=== PATIENT | female | born 1970 | race American Indian/Alaskan Native ===

== ENCOUNTER 2019-10-21 06:07 | Day surgery (SDC) | payer BC ==
--- NOTE | 2019-10-20 16:46 | History and Physical Report ---
History of Present Illness Date of examination: 10/19/19 Date of admission: 10/21/2019 Chief complaint: heavy vaginal bleeding, painful periods History of present illness: Visit Type: Pre-Op CC: sharp vaginal pain. History of Present Illness: Pt presents for pre-op visit; c/o sharp vaginal pains and changing pad every 2 hrs......................................................................Nii Stephens October 19, 2019 1:43 PM Pt has long h/o DUB and was noted to have endometrial mass on SIS.Embx showed polpyoid tissue. Pt desires removal of mass. She is here for pre op for hysteroscopy with myosure. Vital Signs: Patient Profile: 49 Years Old Female LMP: 09/25/2019 Height: 65 inches (165.10 cm) Weight: 227 pounds BMI: 37.77 BP sittin / 90 (left arm) Menstrual History: LMP (date): 09/25/2019 Current Method of Contraception: None Past History : 2 Term Births: 2 Para: 2 TOE FORMER STITCHDOWNS History Uterine Surgery (not C/S): negative Operations: Novasure ablation Tubal Ligation Essure--she denies this today 11/18/17 MB has vasetomy Hospitalizations: negative Anesthesia Complications: negative Abnormal PAP: negative Uterine Anomaly: negative ENEDINA Exposure: negative Infertility: negative Infection History HIV Risk Eval: no Personal hx. of genital herpes: yes Partner hx. of genital herpes: no Hx of STD: Trichomonas Other: HSV1 FALSECurrent Allergies (reviewed today): No known allergies Past Medical History: Reviewed history from 09/29/2018 and no changes required: Anxiety Sjorgens- diagnosed in 2017 Past Surgical History: Reviewed history from 11/18/2017 and no changes required: Novasure ablation Tubal Ligation Essure--she denies this today 11/18/17 MB has vasetomy Social History: Patient is Smoking History: Patient has never smoked. Risk Factors: Smoked Tobacco Use: Never smoker Smokeless Tobacco Use: Never Drug use: no HIV high-risk behavior: no Alcohol use: yes Type: occ Exercise: yes Seatbelt use: 100 % Review of Systems General Denies fever, chills, sweats, anorexia, fatigue, weakness, malaise, weight loss and sleep disorder. Denies nausea, vomiting, headache, swelling of legs, abdominal pain, vaginal discharge, vaginal bleeding and contractions. Complains of menorrhagia and painful periods. Denies vaginal discharge, incontinence, dysuria, hematuria, urinary frequency, amenorrhea, abnormal vaginal bleeding, pelvic pain, genital sores, decreased libido, painful sex, urinary urgency, hot flashes, vaginal dryness, vaginal itching and vaginal odor. CV Denies chest pains, palpitations, syncope, dyspnea on exertion, orthopnea, PND and peripheral edema. Resp Denies cough, dyspnea at rest, excessive sputum, hemoptysis, wheezing and pleurisy. GI Denies nausea, vomiting, diarrhea, constipation, change in bowel habits, abdominal pain, melena, hematochezia, jaundice, gas/bloating, indigestion/heartburn, dysphagia and odynophagia. Endo Denies cold intolerance, heat intolerance, polydipsia, polyphagia, polyuria and unusual weight change. Breast Denies left breast lump, right breast lump, nipple discharge, bloody discharge from nipple, breast pain, abnormal mammogram and breast enlargement. MS Denies back pain, joint pain, joint swelling, muscle cramps, muscle weakness, stiffness, arthritis, sciatica, restless legs, leg pain at night and leg pain with exertion. Derm Denies rash, itching, dryness and suspicious lesions. Neuro Denies paralysis, paresthesias, headache, seizures, tremors, vertigo, transient blindness, frequent falls, frequent headaches and difficulty walking. Psych Denies depression, anxiety, irritability and mood swings. Eyes Denies blurring, diplopia, irritation, discharge, vision loss, eye pain and photophobia. ENT Denies earache, ear discharge, tinnitus, decreased hearing, nasal congestion, nosebleeds, sore throat and hoarseness. Allergy Denies urticaria, allergic rash, hay fever and recurrent infections. Heme Denies abnormal bruising, bleeding and enlarged lymph nodes. [Labs In-House] Physical Exam Appearance: well developed, well nourished, no acute distress Other Exams Lungs: no rales, rhonchi, or wheezes Heart: S1, S2, no murmur, rub, or gallop Abdomen: soft, non-tender, no masses, bowel sounds normal Extremities: normal alignment, no joint enlargement, crepitus, masses or tenderness; normal tone and strength Genitourinary Exam Comments: deferred until EUA [Problems-[facility]] Medications Added to Medication List This Visit: 1) Lysteda 650 Mg Oral Tablet (Tranexamic acid) .... 1300 mg 3 times daily (3900 mg/day) for up to 5 days during monthly menstruation Past History Past Medical History: other (see hpi) Past Surgical History: other (see hpi) TOE FORMER STITCHDOWNS History: other (see hpi) Family/Genetic History: other (see hpi) Social history: no significant social history, Medications and Allergies Allergies Allergy/AdvReac Type Severity Reaction Status Date / Time No Known Allergies Allergy Unverified 10/19/19 16:35 Home Medications Medication Instructions Recorded Confirmed Last Taken Type Hydroxychloroquine [Plaquenil] 200 mg PO QDAY 10/19/19 10/19/19 Unknown History Active Meds: Active Medications Lactated Ringer's (Lactated Ringers) 1,000 mls @ 100 mls/hr IV DIRECT FUAD Midazolam HCl (Versed) 2 mg IV PREOP NR Stop: 10/21/19 16:00 Scopolamine (Transderm-Scop) 1 each TD PREOP NR Stop: 10/21/19 16:00 Review of Systems All systems: negative - Physical Exam Cardiovascular: Normal S1, Normal S2 Lungs: Positive: Clear to auscultation, Normal air movement Abdomen: Positive: normal appearance, soft, distention, tenderness Genitourinary (Female): Positive: other (deferred until EUA) Results All other labs normal. Assessment and Plan - Patient Problems (1) Dysmenorrhea Status: Acute (2) Menorrhagia Status: Acute (3) Endometrial mass Status: Acute Plan to address problem: -mass seen on SIS -To OR for hysteroscopy with myosure -consents signed and placed on the chart
[~2019-10-21 06:07] MED LIST: LACTATED RINGERS 1,000 ML IV SCH; MIDAZOLAM 2 MG/2 ML INJ IV NR; SCOPOLAMINE TRANSDERMAL PATCH 72 HR TD NR; ceFAZolin/Water 2 GM/20 ML 2 GM/20 ML SYRINGE IV NR
[2019-10-21] MEDS ORDERED: fentaNYL 100 MCG/2 ML INJ IV PRN (07:10)
--- NOTE | 2019-10-21 07:12 | Anesthesia Day of Surgery ---
Anesthesia Day of Surgery - Day of Surgery Patient Examined: Yes Patient H&P Reviewed: Yes Patient is NPO: Yes
--- NOTE | 2019-10-21 07:12 | Anesthesia Consultation ---
Anesthesia Consult and Med Hx Date of service: 10/21/19 - Airway Anesthetic Teeth Evaluation: Good ROM Head & Neck: Adequate Mental/Hyoid Distance: Adequate Mallampati Class: Class II Intubation Access Assessment: Probably Good - Pulmonary Exam CTA: Yes - Cardiac Exam Cardiac Exam: RRR - Pre-Operative Health Status ASA Pre-Surgery Classification: ASA2 Proposed Anesthetic Plan: General - Pulmonary Hx Smoking: No Hx Respiratory Symptoms: No Hx Sleep Apnea: Yes (compliant with CPAP) - Cardiovascular System Hx Hypertension: No Hx Heart Attack/AMI: No - Central Nervous System CVA: No - Gastrointestinal Hx Gastroesophageal Reflux Disease: Yes (mild) - Endocrine Hx Renal Disease: No Hx Liver Disease: No Hx Insulin Dependent Diabetes: No Hx Non-Insulin Dependent Diabetes: No Hx Thyroid Disease: No - Other Systems Hx Alcohol Use: Yes (Occas) Hx Obesity: Yes (BMI 37) - Additional Comments Anesthesia Medical History Comments: Hx Sjogren's syndrome. Denies associated complications.
[2019-10-21] MEDS ORDERED: LIDOCAINE MPF (2%) 20 MG/1 ML VIAL 5 ML ONE (07:22)
[2019-10-21] MEDS ORDERED: PROPOFOL 200 MG/20 ML VIAL IV ONE (07:22)
[2019-10-21] MEDS ORDERED: MIDAZOLAM 2 MG/2 ML INJ ONE (07:22)
[2019-10-21] MEDS ORDERED: KETOROLAC 30 MG/1 ML INJ ONE (08:36)
[2019-10-21] MEDS ORDERED: ONDANSETRON 4 MG/2 ML INJ ONE (08:36)
[2019-10-21] MEDS ORDERED: dexAMETHasone 20 MG/5 ML VIAL ONE (08:36)
--- NOTE | 2019-10-21 09:06 | Operative Report ---
Operative Report Operative Report: Date of procedure: 10/21/2019 Pre-operative diagnosis: Menorrhagia Dysmenorrhea Menorrhagia Endometrial mass Post-operative diagnosis: Same Procedure name(s): Hysteroscopy Myosure Surgeon: Dr. Oden Nutrition Helper: Certified surgical scrub plastic surgery assistant Anesthesia: Gen. Anesthesia( LMA) EBL: 50 mL Urine output: 50 mL of clear urine out at the beginning of the procedure via straight catheterization Fluid deficit: 800 mL Fluids: 1 L Findings: Thickened tissue within the endometrium was noted. Patient initially was having moderate bleeding prior to the onset of procedure. At the end of the procedure minimal bleeding was noted. Approximately 1-2 cm endometrial mass was noted and removed in its entirety via pressure. Indications: Patient presents with prolonged vaginal bleeding and dysmenorrhea. Patient was noted to have endometrial mass on saline infused sonogram. Endometrial biopsy obtained was noted to be positive for polypoid tissue but otherwise normal. Patient desired removal of mass. All risks benefits and alternatives were discussed with the patient. Consents were signed and placed on the chart. Procedure: Patient was taken to the operating room where she was placed under general anesthesia. She was placed in dorsal lithotomy position with legs in Perez stirrups. She was then prepped and draped in sterile fashion. Bladder was emptied via straight catheterization at this time. The anterior lip of the cervix was grasped with a tenaculum and the uterus was sounded to approximately 10 cm. As at this point that the cervix was dilated to allow the passage of a Myosure hysteroscope. Using the Venancio device the endometrial mass as well as extra endometrial tissue were removed at this time without difficulty. Minimal bleeding was noted. Uterine cavity was noted to have a smooth appearance. Hemostasis was noted to be excellent. Patient was taken to the recovery room awake and in stable condition. Patient was given Ancef prior to the onset of the procedure. All laps and needle counts were correct. Patient tolerated the procedure well.
--- NOTE | 2019-10-21 09:10 | Short Stay Summary ---
Short Stay Documentation Date of service: 10/21/19 - History H&P: dictated Past Medical History: other (see H&P) Social history: no significant social history, - Allergies and Medications Current Medications: Allergies No Known Allergies Allergy (Unverified 10/19/19 16:35) Home Medications Medication Instructions Recorded Confirmed Last Taken Type Hydroxychloroquine [Plaquenil] 200 mg PO QDAY 10/19/19 10/21/19 10/19/19 History Active Medications Fentanyl (Sublimaze) 50 mcg IV Q5MIN PRN PRN Reason: Pain , Severe (7-10) Stop: 10/21/19 23:00 Lactated Ringer's (Lactated Ringers) 1,000 mls @ 100 mls/hr IV DIRECT FUAD Last Admin: 10/21/19 07:40 Dose: 100 mls/hr Documented by: Cefazolin Sodium (Ancef/Sterile Water 2 Gm/20 Ml) 2 gm in 20 mls @ 80 mls/hr IV PREOP NR; Protocol Stop: 10/21/19 23:59 Midazolam HCl (Versed) 2 mg IV PREOP NR Stop: 10/21/19 16:00 Last Admin: 10/21/19 07:42 Dose: 2 mg Documented by: Scopolamine (Transderm-Scop) 1 each TD PREOP NR Stop: 10/21/19 16:00 Last Admin: 10/21/19 07:35 Dose: 1 each Documented by: - Brief post op/procedure progress note Date of procedure: 10/21/19 Pre-op diagnosis: memometrorrhagia 2)endometrial mass Post-op diagnosis: same Procedure: hysteroscopy myosure removal of endometrial mass Anesthesia: MAC Findings: thickened endometrium moderate bleeding prior to procedure minimal at end of procedure endometrial mass Surgeon: RICHARD ARAUJO Estimated blood loss: 50-100ml Pathology: list (endometrial tissue and mass) Specimen disposition: to lab Condition: stable - Hospital course Hospital course: Pt admitted for above stated procedure which was not complicated. Pt will be d/c home once the criteria had been met for discharge for PACU. - Disposition Condition at discharge: Good Disposition: DC-01 TO HOME OR SELFCARE - Discharge Diagnoses (1) Dysmenorrhea Status: Acute (2) Menorrhagia Status: Acute (3) Endometrial mass Status: Acute Short Stay Discharge Plan Activity: no restrictions Diet: regular Follow up with: BRIJESH BROWNING MD [Primary Care Provider] - 7 Days
[2019-10-21 11:12] VITALS: BP 151/81
--- NOTE | 2019-10-21 16:02 | Post Anesthesia Evaluation ---
- Post Anesthesia Evaluation Patient Participated: Yes Airway Patent: Yes Stable Respiratory Function: Yes Nausea/Vomiting: No Temp > 96.8F: Yes Pain Manageable: Yes Adequeate Hydration: Yes Anesthesia Complications: No Block Receding Appropriately: Not Applicable Patient on Ventilator: No
== END 2019-10-21 06:08 | disposition home or self-care (01) ==
LOC: OR 06:07
PROVIDERS: ATTEND Obstetrics & Gynecology
DX: N92.0 Excessive and frequent menstruation with regular cycle (principal); N94.6 Dysmenorrhea, unspecified; N85.8 Other specified noninflammatory disorders of uterus; N94.89 Other specified conditions associated with female genital organs and menstrual cycle; G47.30 Sleep apnea, unspecified; K21.9 Gastro-esophageal reflux disease without esophagitis; E66.9 Obesity, unspecified; M19.90 Unspecified osteoarthritis, unspecified site; Z72.89 Other problems related to lifestyle; Z98.890 Other specified postprocedural states; Z79.899 Other long term (current) drug therapy; Z68.37 Body mass index [BMI] 37.0-37.9, adult
CPT/HCPCS: 58558; 81025; 82803; 88305; C1782; J0690; J1100; J1885; J2250; J2405; J2704; J3010; J7120

== ENCOUNTER 2020-09-27 06:10 | Observation (INO) | payer BC ==
--- NOTE | 2020-09-25 20:47 | History and Physical Report ---
History of Present Illness Date of examination: 09/21/20 Date of admission: 09/27/2020 Chief complaint: heavy vaginal bleeding History of present illness: CC: pre op. History of Present Illness: pt presents for pre op visit: LAVH/ bilateral salpingectomy: Declines IUD removal......................................................................Hua Stephens September 21, 2020 10:50 AM Mask, Patient denies fever, cough, shortness of breath and exposure to COVID-19. Pt with long h/o menomet for the past year that has gotten progressively worse. She is s/p OCPs, Mirena and h/o ablation in the past all of which have not shown improvment in her symptoms. She desires removal of uterus. She was counseled regarding removal of tubes.All risk/benefits/alternatives were d/w pt and questions were addressed and answered. She desries removal also. Pt lexie has the mirena in place and will have removal at time of the procedue also. Consets signed and given to pt to bring with her at time of the procedure. Vital Signs: Patient Profile: 50 Years Old Female Height: 65 inches (165.10 cm) Weight: 231 pounds BMI: 38.44 Temp: 98.0 degrees F BP sittin / 84 (left arm) Current Method of Contraception: IUD Date of Last Mammogram: 07/29/2020 Past History : 2 Term Births: 2 Living Children: 2 Para: 2 MANAGER OF HOSPITAL History Uterine Surgery (not C/S): negative Operations: Novasure ablation Hospitalizations: negative Anesthesia Complications: negative Abnormal PAP: negative Uterine Anomaly: negative ENEDINA Exposure: negative Infertility: negative Infection History HIV Risk Eval: no Personal hx. of genital herpes: yes Partner hx. of genital herpes: no Hx of STD: Trichomonas Other: HSV1 Active Medications (reviewed today): HYDROXYCHLOROQUINE () ESTRADIOL 1 MG ORAL TABLET (ESTRADIOL) 1 po qd IBUPROFEN 800 MG ORAL TABLET (IBUPROFEN) 1 po q6 hr prn pain SINGULAR () MELOXICAM 15 MG ORAL TABLET (MELOXICAM) one po QD prn pain HCTZ () ATORVASTATIN CALCIUM POWDER (ATORVASTATIN CALCIUM) DAILY COMBO MULTI VITAMINS ORAL TABLET (MULTIPLE VITAMINS-MINERALS) Current Allergies (reviewed today): No known allergies Past Medical History: Reviewed history from 09/29/2018 and no changes required: Anxiety Sjorgens- diagnosed in 2017 Past Surgical History: Novasure ablation Family History Summary: Reviewed history Last on 12/28/2016 and no changes required:09/25/2020 General Comments - FH: Family History of CVA or Stroke Family History of Diabetes Family History of Hypertension Social History: Reviewed history from 10/19/2019 and no changes required: Patient is Smoking History: Patient has never smoked. Risk Factors: Smoked Tobacco Use: Never smoker Smokeless Tobacco Use: Never Drug use: no HIV high-risk behavior: no Alcohol use: yes Exercise: yes Seatbelt use: 100 % Mammogram History: Date of Last Mammogram: 07/29/2020 Review of Systems See HPI [Labs In-House] Physical Exam Appearance: well developed, well nourished, no acute distress Other Exams Lungs: no rales, rhonchi, or wheezes Heart: S1, S2, no murmur, rub, or gallop Abdomen: soft, non-tender, no masses, bowel sounds normal Skin: no ulcers, xanthomas Extremities: normal alignment, no joint enlargement, crepitus, masses or tenderness; normal tone and strength Genitourinary Exam Comments: deferred until EUA [Problems-[facility]] Medications Added to Medication List This Visit: 1) Hydroxychloroquine Past History Past Medical History: other (see hpi) Past Surgical History: other (see hpi) MANAGER OF HOSPITAL History: other (see hpi) Family/Genetic History: other (see hpi) Social history: other (see hpi) - Obstetrical History : 2 Para: 2 Hx # Term Pregnancies: 2 Number of Living Children: 2 Medications and Allergies Allergies Allergy/AdvReac Type Severity Reaction Status Date / Time shellfish derived Allergy Rash Verified 09/19/20 12:50 Home Medications Medication Instructions Recorded Confirmed Last Taken Type Hydroxychloroquine [Plaquenil] 200 mg PO QDAY 10/19/19 09/19/20 10/19/19 History AtorvaSTATin [Lipitor] 40 mg PO QHS 09/19/20 09/19/20 Unknown History Ibuprofen [Motrin 800 MG tab] 800 mg PO Q8H PRN 09/19/20 09/19/20 Unknown History Review of Systems All systems: negative - Vital Signs Vital signs: Vital Signs Temp Pulse Resp BP Pulse Ox 98.4 F 72 20 174/80 100 09/21/20 11:55 09/21/20 11:55 09/21/20 11:55 09/21/20 11:55 09/21/20 11:55 Temp Pulse Resp BP Pulse Ox 98.4 F 72 20 174/80 100 09/21/20 11:55 09/21/20 11:55 09/21/20 11:55 09/21/20 11:55 09/21/20 11:55 - Physical Exam Cardiovascular: Normal S1, Normal S2 Lungs: Positive: Clear to auscultation, Normal air movement Abdomen: Positive: normal appearance, soft. Negative: distention, tenderness, guarding Genitourinary (Female): Positive: other (deferred until eua) Results All other labs normal. Assessment and Plan - Patient Problems (1) Dysmenorrhea Status: Acute (2) Menorrhagia Status: Acute Plan to address problem: -admit for LAVH with BS and removal of mirena IUD -consent signed and placed on the chart
[~2020-09-27 06:10] MED LIST changes: +ACETAMINOPHEN 500 MG TAB PO SCH; +GABAPENTIN 300 MG CAP PO NR; -LACTATED RINGERS 1,000 ML IV SCH
[2020-09-27] MEDS ORDERED: BACTERIOSTATIC SODIUM CHLORIDE 0.9% 30 ML VIAL INFILTRATI ONE (06:27)
[2020-09-27] MEDS ORDERED: BUPIVACAINE/PF (0.5%) 5 MG/1 ML 30 ML VIAL INFILTRATI ONE ×2 (06:48→09:02)
[2020-09-27] MEDS ORDERED: SODIUM CHLORIDE 0.9% 1000 ML 1,000 ML ONE (06:48)
[2020-09-27] MEDS ORDERED: SODIUM CHLORIDE 0.9% 100 ML ONE (06:49)
[2020-09-27] MEDS ORDERED: VASOPRESSIN 20 UNIT/1 ML INJ ONE (06:49)
[2020-09-27] MEDS: LACTATED RINGERS 1,000 ML IV SCH ×2 (06:52→16:28)
[2020-09-27] MEDS ORDERED: METHYLENE BLUE 50 MG/10 ML AMP ONE (06:56)
[2020-09-27] MEDS ORDERED: ONDANSETRON 4 MG/2 ML INJ IV PRN (07:16)
[2020-09-27] MEDS ORDERED: HYDROmorphone 1 MG/1 ML INJ IV PRN (07:16)
[2020-09-27] MEDS ORDERED: ROCURONIUM 50 MG/5 ML INJ IV ONE (07:27)
[2020-09-27] MEDS ORDERED: LIDOCAINE MPF (2%) 20 MG/1 ML VIAL 5 ML ONE (07:27)
[2020-09-27] MEDS ORDERED: ONDANSETRON 4 MG/2 ML INJ ONE (07:27)
[2020-09-27] MEDS ORDERED: propofoL 200 MG/20 ML VIAL IV ONE (07:27)
[2020-09-27] MEDS ORDERED: HYDROmorphone 1 MG/1 ML INJ ONE (07:27)
[2020-09-27] MEDS ORDERED: dexAMETHasone 20 MG/5 ML VIAL ONE (07:27)
[2020-09-27 07:49] LABS: Basophils # (Auto) 0.1 K/mm3 (0.0-0.1); Basophils % (Auto) 1.1 % (0.0-1.8); Eosinophils # (Auto) 0.2 K/mm3 (0.0-0.4); Eosinophils % (Auto) 3.1 % (0.0-4.3); Hematocrit 41.8 % (30.3-42.9); Hemoglobin 13.9 gm/dl (10.1-14.3); Lymphocytes # (Auto) 2.2 K/mm3 (1.2-5.4); Lymphocytes % (Auto) 42.3 % (13.4-35.0); Mean Corpuscular HGB Conc 33 % (30-34); Mean Corpuscular Volume 92 fl (79-97); Monocytes # (Auto) 0.4 K/mm3 (0.0-0.8); Monocytes % (Auto) 7.6 % (0.0-7.3); Platelet Count 205 K/mm3 (140-440); Red Blood Count 4.54 M/mm3 (3.65-5.03); Red Cell Distribution Width 13.4 % (13.2-15.2)
--- NOTE | 2020-09-27 08:52 | Anesthesia Day of Surgery ---
Anesthesia Day of Surgery - Day of Surgery Patient Examined: Yes Patient H&P Reviewed: Yes Patient is NPO: Yes
--- NOTE | 2020-09-27 08:52 | Anesthesia Consultation ---
Anesthesia Consult and Med Hx Date of service: 09/27/20 - Airway Anesthetic Teeth Evaluation: Good ROM Head & Neck: Adequate Mental/Hyoid Distance: Adequate Mallampati Class: Class III Intubation Access Assessment: Possibly Difficult - Pulmonary Exam CTA: Yes - Cardiac Exam Cardiac Exam: RRR - Pre-Operative Health Status ASA Pre-Surgery Classification: ASA2 Proposed Anesthetic Plan: General Nerve Block: post-op TAP if procedure converts to open - Pulmonary Hx Smoking: No Hx Respiratory Symptoms: No Hx Sleep Apnea: Yes (compliant with CPAP) - Cardiovascular System Hx Hypertension: No - Central Nervous System CVA: No - Gastrointestinal Hx Gastroesophageal Reflux Disease: Yes - Endocrine Hx Renal Disease: No Hx Insulin Dependent Diabetes: No Hx Non-Insulin Dependent Diabetes: No Hx Thyroid Disease: No - Other Systems Hx Cancer: No Hx Obesity: Yes (BMI 37)
[2020-09-27] MEDS ORDERED: SODIUM CHLORIDE 0.9% IRR 1,500 ML BOTTLE IR ONE (09:02)
[2020-09-27] MEDS ORDERED: VASOPRESSIN 20 UNIT/1 ML INJ IV ONE (09:06)
[2020-09-27] MEDS ORDERED: SODIUM CHLORIDE 0.9% IRR 1,000 ML BOTTLE IR ONE (09:06)
[2020-09-27] MEDS ORDERED: SODIUM CHLORIDE 0.9% 100 ML IVPB IV ONE (09:15)
[2020-09-27] MEDS ORDERED: LACTATED RINGERS 1,000 ML ONE ×2 (12:14)
[2020-09-27] MEDS ORDERED: NEOSTIGMINE 10MG/10 ML INJ MDV ONE (12:23)
[2020-09-27] MEDS ORDERED: GLYCOPYRROLATE 0.4 MG/2 ML INJ ONE (12:23)
--- NOTE | 2020-09-27 12:42 | Operative Report ---
Operative Report Operative Report: Date of procedure: 09/27/2020 Pre-operative diagnosis: Menorrhagia Dysmenorrhea Failed medical therapy Uterine fibroid Post-operative diagnosis: Same Procedure name(s): Laparoscopic assisted vaginal hysterectomy Bilateral salpingectomy Surgeon: Davida Oden MD Section Hand Helper: Dr. Murphy Anesthesia: General endotracheal anesthesia EBL: 900 mL Urine output: 400 mL of clear urine out at the end of the procedure Fluids: 2300 mL Findings: Normal ovaries bilaterally Globular uterus with multiple fibroids noted Normal tubes bilaterally Adhesions of the bowel to distal left adnexa Indications: Patient presents for laparoscopic-assisted vaginal hysterectomy with bilateral salpingectomy. All risks benefits and alternatives were discussed with the patient. Consents were signed and placed on the chart. Procedure: Patient was taken to the operating room where she was placed under general endotracheal anesthesia. She was then prepped and draped in sterile fashion. It was at this point that the large [employer] care uterine manipulator was placed inside of the uterus after the uterus was sounded to approximately 10 cm. Jacob catheter was also placed at this time. Attention was then turned to the umbilicus in which a supraumbilical incision was made. Under direct visualization the 5 mm trocar was placed inside the peritoneum the peritoneum was then insufflated. As at this point that the laparoscopic portion of the procedure was performed. 1 lateral 5 mm port and one medical 8mm trocor were also placed under direct visualization. Using the tripolar instrument the upper pedicles were cauterized and transected to the including round ligament with excellent hemostasis noted bilaterally. Attention was then turned vaginally. A weighted speculum was placed into the vagina and the cervix was grasped with a single-tooth tenaculum 2. The cervix was then injected circumferentially with Pitressin. The cervix was then circumferentially incised with the scalpel and the bladder dissected off of the pubovesical cervical fascia anteriorly with a sponge stick and Metzenbaum scissors. The same procedure was performed posteriorly and the posterior cul-de-sac was entered into sharply without difficulty. At this point a Maria E Clamp was placed over the uterosacral ligaments on either side. These were then transected and suture ligated with 0 Vicryl. Hemostasis was assured. The cardinal ligaments were then clamped on both sides transected and suture ligated in similar fashion. The uterine arteries were then serially clamped with Maria E clamps transected and suture ligated on both sides. Excellent hemostasis was visualized. After it was clear that the uterus had been completely from all pedicles the uterus was removed vaginally intact with cervix intact. The vaginal cuff angles were closed with figure of 8 stitches of 0 Vicryl on both sides. The peritoneum was incorporated in the stitching of the vaginal cuff. A series of interrupted figure of 8 sutures using 0 Vicryl were used to close the entire vaginal cuff. Excellent hemostasis was noted. The vagina was then irrigated copiously. Attention was then turned laparoscopically at which time. Again all pedicles were noted to be hemostatic. The ureters were identified bila terally with peristalsis noted bilaterally. All instruments were then removed from the abdomen and the vagina. All gas was released from the abdomen. The abdominal incisions were closed using 4-0 Monocryl. Patient tolerated the procedure well sponge lap and needle counts were all correct 3 the patient was taken to the recovery room awake and in stable condition.
[2020-09-27] MEDS ORDERED: ACETAMINOPHEN 325 MG TAB PO PRN (13:00)
[2020-09-27] MEDS ORDERED: MORPHINE 4 MG/1 ML INJ IV PRN (13:00)
[2020-09-27] MEDS ORDERED: HYDROcodone/ACETAMINOPHEN 5-325 MG TAB PO PRN (13:00)
--- NOTE | 2020-09-27 14:48 | Post Anesthesia Evaluation ---
- Post Anesthesia Evaluation Patient Participated: Yes Airway Patent: Yes Stable Respiratory Function: Yes Nausea/Vomiting: No Temp > 96.8F: Yes Pain Manageable: Yes Adequeate Hydration: Yes Anesthesia Complications: No
[2020-09-27] MEDS: ceFAZolin/NS 1 GM/50 ML 1 GM/50 ML BAG IV SCH ×2 (16:29→23:50)
[2020-09-27] MEDS: KETOROLAC 30 MG/1 ML INJ IV PRN (22:42)
[2020-09-28 07:25] LABS: Hematocrit 30.6 % (30.3-42.9); Hemoglobin 10.4 gm/dl (10.1-14.3)
[2020-09-28] MEDS ORDERED: IBUPROFEN 800 MG TAB PO PRN (08:00)
[2020-09-28] MEDS: KETOROLAC 30 MG/1 ML INJ IV PRN (10:26)
--- NOTE | 2020-09-28 12:22 | Progress Note ---
Assessment and Plan - Patient Problems (1) Dysmenorrhea Current Visit: No Status: Acute (2) Menorrhagia Current Visit: No Status: Acute (3) S/P laparoscopic assisted vaginal hysterectomy (LAVH) Current Visit: Yes Status: Acute Plan to address problem: -doing well -d/c home today-f/u in office next week (4) Status post bilateral salpingectomy Current Visit: Yes Status: Acute Subjective - Subjective Date of service: 09/28/20 Principal diagnosis: POD#1 s/p LAVH, BSO, WITH IUD REMOVAL Interval history: Pt doing well today. Pain is well controlled at this time and she is tolerating a regular diet. She desires d/c home today. Patient reports: appetite normal, voiding normally, pain well controlled, ambulating normally, no dizzy ambulation Objective - Vital Signs Latest vital signs: Vital Signs Temp Pulse Pulse Resp Resp BP BP 09/28/20 10:26 20 09/28/20 08:40 97.9 F 89 20 117/79 09/28/20 08:05 20 09/28/20 05:01 99.0 F 85 20 114/62 09/28/20 00:20 99.8 F H 60 18 111/60 09/27/20 23:12 18 09/27/20 22:42 18 09/27/20 22:00 18 09/27/20 21:00 75 18 09/27/20 19:41 97.4 F L 86 18 131/77 09/27/20 15:40 98.0 F 65 16 119/65 09/27/20 14:00 77 20 118/62 09/27/20 13:45 77 20 119/64 09/27/20 13:30 97.2 F L 79 20 122/63 09/27/20 13:15 68 18 123/68 09/27/20 13:05 67 20 123/72 09/27/20 13:00 65 20 127/71 09/27/20 12:55 97.5 F L 68 21 126/71 Pulse Ox 09/28/20 10:26 09/28/20 08:40 09/28/20 08:05 100 09/28/20 05:01 98 09/28/20 00:20 99 09/27/20 23:12 09/27/20 22:42 09/27/20 22:00 09/27/20 21:00 99 09/27/20 19:41 100 09/27/20 15:40 100 09/27/20 14:00 100 09/27/20 13:45 99 09/27/20 13:30 99 09/27/20 13:15 100 09/27/20 13:05 100 09/27/20 13:00 100 09/27/20 12:55 100 Intake and Output 09/27/20 09/28/20 09/28/20 22:59 06:59 14:59 Intake Total 1360 240 240 Output Total 900 300 200 Balance 460 -60 40 Intake: IV 1010 ANCEF/NS 1 GM/50 ML 1 gm 50 In 50 ml @ 100 mls/hr IV Q8H FUAD Rx#:[id number] Lactated Ringers 1,000 ml 960 @ 100 mls/hr IV DIRECT FUAD Rx#:[id number] Oral 350 120 240 Intake, Free Water 120 Output: Urine 900 300 200 Indwelling Catheter 900 300 Void 200 Other: Total, Intake Amount 240 120 240 Total, Output Amount 500 300 200 Voiding Method Indwelling Catheter Indwelling Catheter Toilet Weight 102.512 kg - Exam Cardiovascular: Present: Normal S1, Normal S2 Lungs: Present: Clear to auscultation, Normal air movement Abdomen: Present: normal appearance, soft, normal bowel sounds. Absent: distention, tenderness, guarding Extremities: Present: normal. Absent: tenderness, edema Incision: Present: normal, dry, intact, other (open to air)
--- NOTE | 2020-09-28 12:23 | Discharge Summary ---
Providers - Providers Date of Admission: 09/27/20 12:42 Date of discharge: 09/28/20 Attending physician: RICHARD ARAUJO Primary care physician: BRIJESH BROWNING Hospitalization Reason for admission: other (LAVH WITH BS AND IUD REMOVAL) Procedure: other (LAVH WITH BS) Procedure details: SEE OP NOTE Incision: normal, dry, intact Condition at discharge: Good Disposition: DC-01 TO HOME OR SELFCARE - Discharge Diagnoses (1) Dysmenorrhea Status: Acute (2) Menorrhagia Status: Acute Plan - Discharge Medications Prescriptions: Docusate Sodium [Colace] 100 mg PO BID PRN #60 capsule PRN Reason: Constipation Ferrous Sulfate [Feosol 325 MG tab] 325 mg PO QDAY #60 tablet Ibuprofen [Motrin 800 MG tab] 800 mg PO Q8HR PRN #30 tablet PRN Reason: Pain, Moderate (4-6) oxyCODONE /ACETAMINOPHEN [Percocet 5/325] 1 tab PO Q4HR #30 tab - Provider Discharge Summary Activity: routine, no sex for 6 weeks, no heavy lifting 4 weeks Diet: routine Instructions: routine Additional instructions: [] Smoking cessation referral if applicable(refer to patient education folder for contact #) [] Refer to [facility] Booklet Call your doctor immediately for: * Fever > 100.5 * Heavy vaginal bleeding ( >1 pad per hour) * Severe persistent headache * Shortness of breath * Reddened, hot, painful area to leg or breast * Drainage or odor from incision. * Keep incision clean and dry at all times and follow doctor's instructions regarding bathing/showering - Follow up plan Follow up: BRIJESH BROWNING MD [Primary Care Provider] - 7 Days RICHARD ARAUJO MD [Staff Physician] - 7 Days Forms: [facility] Discharge Summary, Discharge Signature Page
[2020-09-28 13:24] VITALS: BP 109/60
== END 2020-09-28 13:10 | disposition home or self-care (01) ==
LOC: OR 06:10 → OB 12:42
PROVIDERS: ADMIT Obstetrics & Gynecology; ATTEND Obstetrics & Gynecology
DX: N92.0 Excessive and frequent menstruation with regular cycle (principal); N94.6 Dysmenorrhea, unspecified; F41.9 Anxiety disorder, unspecified
CPT/HCPCS: 36415; 58552; 81025; 85014; 85018; 85025; 86850; 86900; 86901; 88302; 88307; 96365; 96366; 96375; 96376; G0378; J0690; J1100; J1170; J1885; J2250; J2405; J2704; J2710; J7030; J7120; Q9968